=== PATIENT | female | born 1985 | race Caucasian/White ===

== ENCOUNTER 2016-09-24 06:15 | Inpatient (IN) | payer BC ==
[2016-09-23 15:39] LABS: BASOPHILS % (AUTO) 0.4 % (0.0-2.0); EOSINOPHILS # (AUTO) 0.1 K/uL (0.0-0.4); EOSINOPHILS % (AUTO) 1.9 % (0.0-4.0); HEMATOCRIT 37.3 % (36-48); HEMOGLOBIN 12.4 g/dL (12.0-16.0); LYMPHOCYTES # (AUTO) 1.3 K/uL (1.0-5.5); LYMPHOCYTES % (AUTO) 26.6 % (20.5-51.5); MEAN CORPUSCULAR HEMOGLOBIN 29 pg (27-31); MEAN CORPUSCULAR HGB CONC 33 % (32-36); MEAN CORPUSCULAR VOLUME 88 fL (79.0-98.0); MONOCYTES # (AUTO) 0.5 K/uL (0.0-1.0); MONOCYTES % (AUTO) 10.4 % (1.7-9.3); NEUTROPHILS # (AUTO) 3.1 K/uL (1.8-7.7); NEUTROPHILS % (AUTO) 60.7 % (40.0-70.0); PLATELET COUNT (AUTO) 229 K/uL (130-430); RED BLOOD CELL COUNT(AUTO) 4.26 MIL/uL (4.2-6.2); RED CELL DISTRIBUTION WIDTH 11.9 % (9.0-15.0)
[2016-09-23 15:41] LABS: CALCIUM 8.8 mg/dL (8.4-11.0); CHLORIDE 105 mmol/L (98-107); CREATININE 0.91 mg/dL (0.55-1.30); GLUCOSE 90 mg/dL (70-99); POTASSIUM 4.3 mmol/L (3.5-5.1); SODIUM SERUM 138 mmol/L (136-145); UREA NITROGEN, BLOOD 10 mg/dL (8-21)
[2016-09-23 15:44] LABS: ANION GAP < 3 (5-15); GFR AFRICAN AMERICAN 93 mL/min (>90)
[2016-09-23 15:46] LABS: BILIRUBIN,URINE NEGATIVE (NEGATIVE); BLOOD, URINE NEGATIVE (NEGATIVE); CLARITY/URINE CLEAR (CLEAR); COLOR,URINE YELLOW (YELLOW); GLUCOSE,URINE NEGATIVE (NEGATIVE); KETONES,URINE NEGATIVE (NEGATIVE); LEUKOCYTE ESTERASE ,URINE NEGATIVE (NEGATIVE); NITRITE, URINE NEGATIVE (NEGATIVE); PH,URINE 7.5 (5.0-8.0); PROTEIN URINE NEGATIVE (NEGATIVE); UROBILINOGEN,URINE 0.2 (0.2-1.0)
[~2016-09-24] VITALS: Ht 170.2 cm; Wt 81.6 kg
[2016-09-24] MEDS ORDERED: CEFAZOLIN 2 GM IVPB PREMIX 50 ML IV ONE (07:00)
[2016-09-24] MEDS ORDERED: NS IRRIG SOLN 1000 ML IR ONE (07:16)
[2016-09-24] MEDS ORDERED: BUPIVACAINE /EPINEPHRINE/PF 0.25% 30 ML VIAL INJ ONE (07:16)
[2016-09-24] MEDS ORDERED: METOCLOPRAMIDE HCL 10 MG/2 ML VIAL IVP ONE (07:16)
[2016-09-24] MEDS ORDERED: PROPOFOL 200MG/ 20ML VIAL (DIPRIVAN) IV ONE (07:16)
[2016-09-24] MEDS ORDERED: SEVOFLURANE 15 MIN GAS INH ONE (07:16)
[2016-09-24] MEDS ORDERED: ROCURONIUM BROMIDE 10 MG/ML (ZEMURON) IV ONE (07:16)
[2016-09-24] MEDS ORDERED: MIDAZOLAM HCL 5 MG/5 ML VIAL IVP ONE (07:16)
[2016-09-24] MEDS ORDERED: KETOROLAC TROMETHAMINE 30 MG VIAL IVP ONE (07:16)
[2016-09-24] MEDS ORDERED: fentaNYL CITRATE/PF 100 MCG/2 ML AMP IVP ONE (07:16)
[2016-09-24] MEDS ORDERED: LR 1,000 ML IV.SOLN IV ONE (07:16)
[2016-09-24] MEDS ORDERED: DEXAMETHASONE SOD PHOSPHATE 4 MG/ML VIAL IVP ONE (07:16)
[2016-09-24] MEDS ORDERED: fentaNYL CITRATE/PF 100 MCG/2 ML AMP IVP PRN (10:00)
[2016-09-24] MEDS ORDERED: ONDANSETRON HCL 4 MG/2 ML VIAL IVP PRN ×2 (10:00)
[2016-09-24] MEDS ORDERED: LR 1,000 ML IV ONE (10:00)
[2016-09-24] MEDS ORDERED: NALOXONE HCL 0.4 MG/ML AMP (NARCAN) IVP PRN ×2 (10:00→12:45)
[2016-09-24] MEDS ORDERED: DIPHENHYDRAMINE INJ 50 MG/ML VIAL IVP PRN (10:00)
[2016-09-24] MEDS ORDERED: ePHEDrine sulfate 50 MG/ML VIAL IVP PRN (10:00)
[2016-09-24] MEDS ORDERED: NALBUPHINE HCL 10 MG/ML AMP IVP PRN (10:00)
[2016-09-24] MEDS ORDERED: fentaNYL CITRATE/PF 100 MCG/2 ML AMP ONE (10:20)
[2016-09-24] MEDS ORDERED: MORPHINE PCA 50 mg/50 mL NS 50 ML IV ONE (10:36)
[2016-09-24] MEDS ORDERED: ONDANSETRON 4 MG ODT TAB PO PRN (10:45)
[2016-09-24] MEDS ORDERED: ZOLPIDEM TARTRATE 5 MG TABLET PO PRN (10:45)
[2016-09-24] MEDS: CEFAZOLIN 1 GM IVPB PREMIX 50 ML IV SCH ×2 (12:41→17:58)
[2016-09-24] MEDS: D5LR 1,000 ML IV SCH ×2 (12:41→20:30)
[2016-09-24] MEDS ORDERED: MORPHINE PCA 50 mg/50 mL NS IV PRN (12:45)
[2016-09-24 14:18] LABS: HEMATOCRIT 35.5 % (36-48); HEMOGLOBIN 11.9 g/dL (12.0-16.0)
[2016-09-24 14:35] VITALS: BP_SYST 114
[2016-09-24 14:39] VITALS: BP_SYST 115
[2016-09-24 16:00] VITALS: BP_SYST 100
[2016-09-24 18:32] LABS: HEMATOCRIT 36.1 % (36-48); HEMOGLOBIN 11.9 g/dL (12.0-16.0)
[2016-09-24 20:17] VITALS: BP_SYST 102
[2016-09-25] VITALS: BP_SYST 106
[2016-09-25 04:00] VITALS: BP_SYST 101
[2016-09-25] MEDS: D5LR 1,000 ML IV SCH ×3 (05:32→22:40)
[2016-09-25 07:42] LABS: BASOPHILS % (AUTO) 0.1 % (0.0-2.0); EOSINOPHILS % (AUTO) 0.2 % (0.0-4.0); HEMATOCRIT 32.4 % (36-48); HEMOGLOBIN 10.8 g/dL (12.0-16.0); LYMPHOCYTES # (AUTO) 1.4 K/uL (1.0-5.5); LYMPHOCYTES % (AUTO) 16.5 % (20.5-51.5); MEAN CORPUSCULAR HEMOGLOBIN 30 pg (27-31); MEAN CORPUSCULAR HGB CONC 33 % (32-36); MEAN CORPUSCULAR VOLUME 89 fL (79.0-98.0); MONOCYTES % (AUTO) 11.7 % (1.7-9.3); NEUTROPHILS # (AUTO) 6.3 K/uL (1.8-7.7); NEUTROPHILS % (AUTO) 71.5 % (40.0-70.0); PLATELET COUNT (AUTO) 180 K/uL (130-430); RED BLOOD CELL COUNT(AUTO) 3.64 MIL/uL (4.2-6.2); RED CELL DISTRIBUTION WIDTH 11.9 % (9.0-15.0); WHITE BLOOD COUNT (AUTO) 8.7 K/uL (4.8-10.8)
[2016-09-25 08:00] VITALS: BP_SYST 113
[2016-09-25] MEDS ORDERED: MEPERIDINE IV ONE (08:50)
[2016-09-25] MEDS ORDERED: SODIUM CHLORIDE IV ONE (08:50)
[2016-09-25] MEDS ORDERED: NS IV PRN (09:00)
[2016-09-25] MEDS ORDERED: [UNRECOGNIZED DRUG - OTHER] IV PRN (09:00)
[2016-09-25] MEDS ORDERED: NALOXONE HCL 0.4 MG/ML AMP (NARCAN) IVP PRN (09:00)
[2016-09-25 12:00] VITALS: BP_SYST 100
[2016-09-25 18:22] VITALS: BP_SYST 104
[2016-09-25 19:55] VITALS: BP_SYST 114
[2016-09-26 00:21] VITALS: BP_SYST 111
[2016-09-26 04:31] VITALS: BP_SYST 132
[2016-09-26] MEDS ORDERED: HYDROcodone/ACETAMIN 5-325 MG TAB (NORCO/ VICODIN) PO PRN ×2 (06:45)
[2016-09-26 08:24] VITALS: BP_SYST 116
[2016-09-26] MEDS: D5LR 1,000 ML IV SCH (08:55)
[2016-09-26] MEDS ORDERED: BISACODYL 10 MG/SUPPOSITORY RC ONE (10:00)
[2016-09-26 12:01] VITALS: BP_SYST 107
[2016-09-26 14:54] VITALS: BP_SYST 107
== END 2016-09-26 15:45 | disposition home or self-care (01) | DRG 743 ==
LOC: SDS 06:15 → SMU 06:16 → SDS 10:38 → STU 11:20 → SDS 09-25 09:46 → STU 09-25 09:46 → UNDOADMIN 09-25 09:47 → STU 09-25 09:47
PROVIDERS: ADMIT Obstetrics & Gynecology Gynecology; ATTEND Obstetrics & Gynecology Gynecology
PROC: 0UB20ZZ Excision of Bilateral Ovaries, Open Approach (ICD-10-PCS; principal; 2016-09-24 07:30)
DX: N80.2 Endometriosis of fallopian tube (principal); N80.1 Endometriosis of ovary; G43.909 Migraine, unspecified, not intractable, without status migrainosus; Z83.3 Family history of diabetes mellitus; Z82.49 Family history of ischemic heart disease and other diseases of the circulatory system
CPT/HCPCS: 36415; 80048; 81003; 84703; 85018-TC; 85025; 85610-TC; 85730-TC; 86886; 86900; 86901; 86920; 88302; 88305; 88313; 88341; 88342; J0690; J1100; J1885; J2175; J2250; J2270; J2405; J2704; J2765; J3010; J3490; J7120; Q0162